=== PATIENT | female | born 1975 | race Asian ===

== ENCOUNTER 2019-02-03 11:23 | Inpatient (IN) | payer OTHER ==
[~2019-02-03] VITALS: Ht 152.4 cm; Wt 72.6 kg
--- NOTE | 2019-02-03 11:26 | NUR ---
PATIENT AMBULATED WITH STEADY GAIT TO BED 5.
[2019-02-03 11:32] VITALS: BP 132/98
[2019-02-03] MEDS ORDERED: ACETAMINOPHEN 325 MG TAB ONE (11:33)
[2019-02-03] MEDS ORDERED: NACL 0.9% 1,000 ML IV ONE ×2 (11:35→13:45)
[2019-02-03] MEDS ORDERED: ACETAMINOPHEN 650 MG/20.3 ML UDC PO ONE (11:35)
[2019-02-03] MEDS ORDERED: AZITHROMYCIN 500 MG in DEXTROSE 5% 250 ML IV ONE (11:35)
[2019-02-03] MEDS ORDERED: ACETAMINOPHEN 325 MG TAB PO ONE ×2 (11:35)
--- NOTE | 2019-02-03 11:38 | NUR ---
PT C/O DRY COUGH, SOB, AND FEVER SINCE LAST NIGHT. PT HAS HX OF ASTHMA BUT STATES HER INHALOR OF ALBUTROL HAS BEEN . OTHERWISE, PT DENIES HAVING ANY OTHER DISCOMFORTS OR PAIN. PATIENT STATES PAIN OF 0/10 AT THIS TIME; VSS; PATIENT POSITIONED FOR COMFORT; HOB ELEVATED; BEDRAILS UP X1; BED DOWN. ER MD MADE AWARE OF PT STATUS.
[2019-02-03] MEDS ORDERED: cefTRIAXone 1,000 MG VIAL ONE (11:50)
[2019-02-03] MEDS ORDERED: AZITHROMYCIN 500 MG INJ VIAL IV ONE (11:50)
[2019-02-03 12:05] LABS: HEMATOCRIT 39.1 % (36-48); HEMOGLOBIN 12.8 g/dL (12.0-16.0); MEAN CORPUSCULAR HEMOGLOBIN 28 pg (27-31); MEAN CORPUSCULAR HGB CONC 33 g/dL (33-37); MEAN CORPUSCULAR VOLUME 86.9 fL (80-94); PLATELET COUNT (AUTO) 321 K/uL (140-450); RED CELL DISTRIBUTION WIDTH 14.1 % (11.6-13.7); WHITE BLOOD COUNT (AUTO) 12.2 K/uL (4.8-10.8)
[2019-02-03 12:06] LABS: APPEARANCE,URINE CLEAR (CLEAR); BILIRUBIN,URINE NEGATIVE (NEGATIVE); BLOOD, URINE NEGATIVE (NEGATIVE); COLOR,URINE YELLOW (YELLOW); LEUKOCYTE ESTERASE ,URINE NEGATIVE (NEGATIVE); NITRITE, URINE NEGATIVE (NEGATIVE); PH,URINE >=9.0 (5.0-9.0); UGLUCOSE NEGATIVE (NEGATIVE)
[2019-02-03 12:10] LABS: ANION GAP 11.3 (8-16); CARBON DIOXIDE 27.8 mmol/L (21-32); CREATININE 0.7 mg/dL (0.6-1.3); POTASSIUM 3.1 mmol/L (3.5-5.1)
[2019-02-03 12:14] LABS: RBC,URINE 0-5 /HPF (0-5); WBC,URINE 0-5 /HPF (0-5)
[2019-02-03 12:16] LABS: ALBUMIN 3.6 g/dL (3.4-5.0); TOTAL BILIRUBIN 0.2 mg/dL (0.0-1.0)
[2019-02-03 12:23] LABS: LYMPHOCYTES % (MANUAL) 11 % (20-46); MONOCYTES % (MANUAL) 6 % (5-12)
--- NOTE | 2019-02-03 13:00 | NUR ---
FLU SWAB SPECIMEN SENT TO LAB.
--- NOTE | 2019-02-03 14:35 | NUR ---
PT IS RESTING IN BED WITH EYES CLOSED.
--- NOTE | 2019-02-03 15:39 | NUR ---
PT MOVED TO BED 10
--- NOTE | 2019-02-03 15:46 | NUR ---
Pt RECEIVED FROM ERWIN HAMILTON. Transfer of care at this time. PATIENT IS ALERT AND ORIENTED, BREATHING EVEN AND UNLABORED. WILL CONTINUE TO MONITOR.
[2019-02-03] MEDS ORDERED: methylPREDNISolone SS 125 MG/2 ML VIAL IVP ONE (16:00)
[2019-02-03] MEDS ORDERED: ALBUTEROL 0.083% 2.5 MG/3 ML NEBU INH ONE ×3 (16:00→17:17)
[2019-02-03] MEDS ORDERED: PRON INH (17:29)
--- NOTE | 2019-02-03 19:00 | NUR ---
RECEIVED PT FROM ED VIA [facility]. PT A, A O X 4, AMBULATORY. PT W/ IV ON THE RIGHT AC, G 20. PATENT AND INTACT.ORIENTED TO UNIT. PLACED ON LOW BED. POC REVIEWED.
[2019-02-03] MEDS ORDERED: guaiFENesin DM 200/20 MG-10 ML 10 ML UDC PO PRN (19:05)
[2019-02-03] MEDS ORDERED: POTASSIUM CHLORIDE 10 MEQ TABER PO PRN (19:05)
[2019-02-03] MEDS ORDERED: ZOLPIDEM 5 MG TAB PO PRN (19:05)
[2019-02-03] MEDS ORDERED: MAGNESIUM OXIDE 400 MG TAB PO PRN (19:05)
[2019-02-03] MEDS ORDERED: ALBUTEROL 0.083% 2.5 MG/3 ML NEBU INH PRN (19:05)
[2019-02-03] MEDS ORDERED: ONDANSETRON 4 MG/2 ML VIAL IVP PRN (19:05)
[2019-02-03] MEDS ORDERED: MAG SULF 2000 MG/WATER PREMIX 50 ML IV PRN (19:05)
[2019-02-03] MEDS ORDERED: IPRATROPIUM 0.02% 0.5 MG/2.5 ML NEBU INH PRN (19:05)
[2019-02-03] MEDS ORDERED: DOCUSATE SODIUM 250 MG GELCAP PO PRN (19:05)
[2019-02-03] MEDS ORDERED: ACETAMINOPHEN 325 MG TAB PO PRN (19:05)
--- NOTE | 2019-02-03 19:15 | NUR ---
PT'S BREATHING HARD,WITH WHEEZES NOTED, PLACED ON O2 AT 2LPM VIA NC, PRN . O2 NOTED TO BE 93% BEFORE O2. AFTER PLACEING O2; WENT TO 98%
--- NOTE | 2019-02-03 19:20 | NUR ---
Patient will be admitted to care of DR VIDAL. Admited to [facility]. Will go to room 106B. Belongings list completed. Report to BRENDA HAMILTON.
--- NOTE | 2019-02-03 19:40 | NUR ---
PT HISTORY AND PHYSICAL DONE; SKIN INTACT
--- NOTE | 2019-02-03 20:00 | NUR ---
PT'S IVF DISLODGED BY PATIENT ACCIDENTALLY WILL FIND ACCESS.
[2019-02-03] MEDS ORDERED: methylPREDNISolone SS 125 MG/2 ML VIAL IVP SCH (21:00)
[2019-02-03] MEDS: methylPREDNISolone SS 125 MG/2 ML VIAL IVP SCH (21:25)
--- NOTE | 2019-02-03 22:00 | NUR ---
MRSA SWAB DONE
--- NOTE | 2019-02-03 22:45 | NUR ---
PT TRYING TO SLEEP, ASKING FOR FOOD ON REGULAR DIET. PT HOMELESS STATED
[2019-02-04] VITALS: BP 130/80
--- NOTE | 2019-02-04 02:00 | NUR ---
PT SLEEPING NO COMPLAINTS OF PAIN, BREATHING BETTER. STILL WHEEZING. WILL CONTINUE TO MONITOR.
[2019-02-04 04:00] VITALS: BP 130/78
--- NOTE | 2019-02-04 04:12 | NUR ---
OFF 02, PT CAN TOLERATE ROOM AIR AND NO SOB NOTED. STILL WITH SLIGHT WHEEZING NOTED
[2019-02-04] MEDS: methylPREDNISolone SS 125 MG/2 ML VIAL IVP SCH ×2 (05:21→11:44)
[2019-02-04 06:14] LABS: BASOPHILS % (AUTO) 0.1 % (0.0-2.0); HEMATOCRIT 39.3 % (36-48); HEMOGLOBIN 12.7 g/dL (12.0-16.0); LYMPHOCYTES # (AUTO) 0.6 K/uL (2.5-16.5); LYMPHOCYTES % (AUTO) 5.7 % (20.5-51.1); MEAN CORPUSCULAR HEMOGLOBIN 28 pg (27-31); MEAN CORPUSCULAR HGB CONC 32 g/dL (33-37); MEAN CORPUSCULAR VOLUME 87.7 fL (80-94); MONOCYTES # (AUTO) 0.2 K/uL (0.8-1.0); MONOCYTES % (AUTO) 2.2 % (1.7-9.3); NEUTROPHILS # (AUTO) 9.7 K/uL (1.8-7.7); PLATELET COUNT (AUTO) 315 K/uL (140-450); RED BLOOD CELL COUNT(AUTO) 4.49 MIL/uL (4.20-5.40); RED CELL DISTRIBUTION WIDTH 13.8 % (11.6-13.7); WHITE BLOOD COUNT (AUTO) 10.5 K/uL (4.8-10.8)
--- NOTE | 2019-02-04 06:15 | NUR ---
PT AWAKE, ALERT ORIENTED X 4, PT IN STABLE CONDITION. NO SOB, NO COMPLAINTS OF PAIN. WILL ENDORSE TO NEXT SHIFT NURSE.
[2019-02-04 06:41] LABS: ANION GAP 15.5 (8-16); CARBON DIOXIDE 22.9 mmol/L (21-32); CREATININE 0.6 mg/dL (0.6-1.3); POTASSIUM 4.4 mmol/L (3.5-5.1)
--- NOTE | 2019-02-04 07:18 | NUR ---
RECEIVED BEDSIDE REPORT FROM THE EXERCISE PHYSIOLOGIST CERTIFIED NURSE, PT IS AWAKE AND ALERT, NO S/S OF ACUTE DISTRESS OR SOB AT THIS TIME. PT IS ON ROOM AIR. SKIN IS INTACT. IV SITE R HAND 24 G, SALINE LOCK. PT IS AMBULATORY. CALL LIGHT IS WITHIN REACH. WILL CONTINUE TO MONITOR.
[2019-02-04 08:00] VITALS: BP 124/78
--- NOTE | 2019-02-04 10:11 | NUR ---
PATIENT HAS BEEN SCREENED AND CATEGORIZED LOW NUTRITION RISK. PATIENT WILL BE SEEN WITHIN 5-7 DAYS OF ADMISSION. 02/08/19-02/10/[address]
[2019-02-04] MEDS ORDERED: INFLUENZA VACCINE QUAD 0.5 ML SYR IMVAC PRN (11:15)
[2019-02-04] MEDS ORDERED: AZITHROMYCIN 250 MG in DEXTROSE 5% 250 ML IV SCH (12:00)
--- NOTE | 2019-02-04 12:10 | NUR ---
PT HAS DC'D. PT WAS GIVEN DC INSTRUCTIONS AND DC PRESCRIPTION, TO WHICH SHE VERBALIZED UNDERSTANDING. WORK EXCUSE NOTE WAS PROVIDED. PT RECEIVED A FLU VACCINE UPON DC. IV SITE AND WRIST BAND REMOVED. PT LEFT WITH ALL HER BELONGINGS IN STABLE CONDITION.
--- NOTE | 2019-02-04 15:49 | NUR ---
SW attempted to conduct screening but patient has discharged.
--- NOTE | 2019-02-04 16:12 | NUR ---
F/U APPOINTMENT MADE WITH PT'S PCP DR GERARDO NAPIER [phone] ON 02/07/19 AT 2:30 PM THE ADDRESS IS [address] [place] [address] . CALLED PATIENT'S PHONE [phone] LEFT A MESSAGE.
== END 2019-02-04 12:10 | disposition home or self-care (01) | DRG 720 ==
LOC: MED 11:23 → MTU 18:19
PROVIDERS: ADMIT Internal Medicine Pulmonary Disease; ATTEND Internal Medicine Pulmonary Disease
DX: A41.9 Sepsis, unspecified organism (principal); J18.9 Pneumonia, unspecified organism; J45.901 Unspecified asthma with (acute) exacerbation; F17.210 Nicotine dependence, cigarettes, uncomplicated; I10 Essential (primary) hypertension; Z79.899 Other long term (current) drug therapy
CPT/HCPCS: 36415; 71045; 80048; 80053; 81001; 81025; 82140; 83605; 83690; 83735; 85025; 87040; 87081; 87086; 87804; 93005; 94640; 96361; 96365; 96367; 96375; 99285; J0456; J0696; J2930; J7030; J7060; J7613; Q0092

== ENCOUNTER 2019-02-08 16:04 | Emergency (ER) | payer OTHER ==
[~2019-02-08] VITALS: Ht 152.4 cm; Wt 76.7 kg
[~2019-02-08 16:04] MED LIST: PRON INH
[2019-02-08 16:18] VITALS: BP 137/86
[2019-02-08] MEDS ORDERED: ALBUTEROL SULFATE/IPRATROPIU 3 ML SOL IH ONE (16:25)
--- NOTE | 2019-02-08 16:31 | NUR ---
[facility] THERAPY AND RESPIRATORY GIVEN ORDERED
--- NOTE | 2019-02-08 16:44 | NUR ---
Patient transferred to bed 10 for further care. RN re-evaluating patient at bedside.
--- NOTE | 2019-02-08 16:53 | NUR ---
43 y/o female presenting with c/c of sob since thursday. per patient does not have an inhaler prescribed, and its all she needs. pt nka. medical hx of asthma. rx inhalers. denies n/v. per pt diarreah x2 days. side rail x1. pt currently 96 spo2 in RA. clear lung sounds; normoactive bowel sounds. pt is a smoker. Addendum: 02/08/19 at 1701 by [employer] per pt living in her car but will be moving soon to an apartment. per pt holds two jobs.
[2019-02-08 17:48] VITALS: BP 137/86
--- NOTE | 2019-02-08 17:49 | NUR ---
Patient discharged with v/s stable. Written and verbal after care instructions given and explained. Patient alert, oriented and verbalized understanding of instructions. Ambulatory with steady gait. All questions addressed prior to discharge. ID band removed. Patient advised to follow up with PMD. Rx of PREDNISONE AND ALBUTEROL given. Patient educated on indication of medication including possible reaction and side effects. Opportunity to ask questions provided and answered.
== END 2019-02-08 17:49 | disposition home or self-care (01) ==
LOC: MED 16:04
DX: J45.901 Unspecified asthma with (acute) exacerbation (principal); F17.210 Nicotine dependence, cigarettes, uncomplicated; J45.909 Unspecified asthma, uncomplicated; I10 Essential (primary) hypertension; Z90.49 Acquired absence of other specified parts of digestive tract; Z79.899 Other long term (current) drug therapy; Z71.6 Tobacco abuse counseling
CPT/HCPCS: 94640; 99284; J7620

== ENCOUNTER 2019-02-11 18:53 | Emergency (ER) | payer OTHER ==
[~2019-02-11] VITALS: Ht 152.4 cm; Wt 72.6 kg
[2019-02-11 19:05] VITALS: BP 126/78
--- NOTE | 2019-02-11 19:08 | NUR ---
TO LOBBY A/W BED AMBULATORY
--- NOTE | 2019-02-11 20:00 | NUR ---
43 YEAR OLD FEMALE COMPLAINS OF COUGH X 1 WEEK. PATIENT STATES CLEAR MUCUS, LUNGS CTABL, BREATHING EVEN AND UNLABORED. PATIENT STATES SHORTNESS OF BREATHE PRESENT. PATIENT DENIES NAUSEA, VOMITTING. PATIENT ALERT AND ORIENTED, BED IN LOWEST POSITION, LOCKED, BED RAIL UPX1.
[2019-02-11 20:15] VITALS: BP 125/78
--- NOTE | 2019-02-11 20:15 | NUR ---
Patient discharged with v/s stable. Written and verbal after care instructions ABOUT ASTHMA AND COUGH given and explained. Patient verbalized understanding. Ambulatory with steady gait. All questions addressed prior to discharge. Advised to follow up with PMD.
== END 2019-02-11 20:15 | disposition home or self-care (01) ==
LOC: MED 18:53
DX: R05 Cough (principal); I10 Essential (primary) hypertension; J45.909 Unspecified asthma, uncomplicated; Z79.51 Long term (current) use of inhaled steroids
CPT/HCPCS: 99281

== ENCOUNTER 2019-02-22 07:21 | Emergency (ER) | payer OTHER ==
[~2019-02-22] VITALS: Ht 152.4 cm; Wt 74.8 kg
[2019-02-22 07:27] VITALS: BP 129/91
--- NOTE | 2019-02-22 07:30 | NUR ---
C/O COUGH, RUNNY NOSE , SORE THROAT & LEFT CHEST PAIN X 2 WEEKS.PT AWAKE ,ALERT , AFEBRILE ,AMBULATORY WITH STEADY GAIT , SCE ,CBS . MED HX:ASTHMA, GALL BLADDER REMOVAL
--- NOTE | 2019-02-22 07:40 | NUR ---
DR SALGADO AT BEDSIDE ,XRAY AT BEDSIDE BUT DR CANCELLED XRAY.
--- NOTE | 2019-02-22 07:52 | NUR ---
Patient discharged with v/s stable. Written and verbal after care instructions given and explained acute bronchitis. Patient alert, oriented and verbalized understanding of instructions. Ambulatory with steady gait. All questions addressed prior to discharge. ID band removed. Patient advised to follow up with PMD. Rx of ryann dee given. Patient educated on indication of medication including possible reaction and side effects. Opportunity to ask questions provided and answered.
[2019-02-22 07:53] VITALS: BP 129/89
== END 2019-02-22 07:52 | disposition home or self-care (01) ==
LOC: MED 07:21
DX: R05 Cough (principal); J45.909 Unspecified asthma, uncomplicated; I10 Essential (primary) hypertension; Z79.51 Long term (current) use of inhaled steroids
CPT/HCPCS: 99283